=== PATIENT | male | born 2000 | race African-American/Black ===

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

== ENCOUNTER 2021-01-08 09:06 | Emergency (ER) | payer MEDICAID, OTHER ==
[~2021-01-08] VITALS: Ht 170.2 cm; Wt 65.0 kg
[2021-01-08 09:15] VITALS: BP 124/56
[2021-01-08] MEDS ORDERED: IBUPROFEN 600MG TABLET PO ONE (11:00)
[2021-01-08] MEDS ORDERED: NAPR-681 MT (12:02)
== END 2021-01-08 12:23 | disposition home or self-care (01) ==
LOC: ER 09:06
DX: M79.641 Pain in right hand (principal); M79.644 Pain in right finger(s); Z87.81 Personal history of (healed) traumatic fracture
CPT/HCPCS: 73130; 99283

== ENCOUNTER 2022-10-09 17:01 | Emergency (ER) | payer OTHER ==
[~2022-10-09] VITALS: Ht 175.3 cm; Wt 68.0 kg
[~2022-10-09 17:01] MED LIST: NAPR-681 MT
[2022-10-09 17:32] VITALS: TEMP 98.8; O2SAT 100
[2022-10-09] MEDS ORDERED: KETOROLAC 60MG/2ML VIAL IM STA (19:57)
[2022-10-09] MEDS ORDERED: BACITRACIN ZINC OINT UDPKT TOP ONE (20:00)
[2022-10-09] MEDS ORDERED: LIDOCAINE HCL/PF 1% 10 MG/ML 5ML VIAL INFIL ONE (20:00)
[2022-10-09 20:45] VITALS: BP 133/80; PULSE 95; RESP 18
[2022-10-09] MEDS ORDERED: IBUP-2029 PO (21:04)
[2022-10-09] MEDS ORDERED: CEPH500T MT (21:04)
[2022-10-09] MEDS ORDERED: SULF1TAB48 MT (21:04)
== END 2022-10-09 21:17 | disposition home or self-care (01) ==
LOC: ER 17:01
DX: N49.2 Inflammatory disorders of scrotum (principal); F12.10 Cannabis abuse, uncomplicated
CPT/HCPCS: 10060; 96372; 99283; J1885; J3490; Z7610 ×5

== ENCOUNTER 2023-05-20 14:39 | Emergency (ER) | payer MEDICAID, OTHER ==
[~2023-05-20] VITALS: Ht 172.7 cm; Wt 65.9 kg
[~2023-05-20 14:39] MED LIST changes: +CEPH500T MT; +IBUP-2029 PO; +SULF1TAB48 MT
[2023-05-20 14:55] VITALS: RESP 18; TEMP 98.8; O2SAT 100
[2023-05-20 15:49] LABS: BASOPHILS % 1.5 % (0.0-2.0); DIFFERENTIAL COMMENT 0; EOSINOPHILS % 0.4 % (0.0-5.0); HEMATOCRIT. 50.3 % (42.0-52.0); HEMOGLOBIN. 17.1 g/dL (14.0-18.0); LYMPHOCYTES % 18.3 % (20.0-50.0); MEAN CORPUSCULAR HEMOGLOBIN 34.3 pg (28.0-32.0); MEAN CORPUSCULAR HGB CONC 33.9 g/dL (31.0-37.0); MEAN CORPUSCULAR VOLUME 101.2 fL (80.0-94.0); MEAN PLATELET VOLUME 8.7 fl (7.4-10.4); MONOCYTES % 7.3 % (2.0-8.0); NEUTROPHILS % 72.5 % (40.0-76.0); PLATELET 175 x1000/uL (130-400); RED BLOOD CELL COUNT 4.96 mill/uL (4.7-6.1); RED CELL DISTRIBUTION WIDTH 13.1 % (11.6-14.6); WHITE BLOOD COUNT 6.1 x1000/uL (4.5-11.0)
[2023-05-20 16:03] LABS: ALANINE AMINOTRANSFERASE 16 IU/L (10-49); ALBUMIN 5.2 g/dL (3.2-4.8); ASPARTATE AMINOTRANSFERASE 27 IU/L (<34); BILIRUBIN TOTAL 0.7 mg/dL (0.1-1.0); CALCIUM 10.1 mg/dL (8.7-10.4); CARBON DIOXIDE 25 mEq/L (21-32); CHLORIDE 107 mEq/L (98-107); CREATININE 1.2 mg/dL (0.6-1.3); GLUCOSE 92 mg/dL (70-105); POTASSIUM 4.6 mEq/L (3.5-5.1); PROTEIN TOTAL 8.5 g/dL (6.0-8.3); SODIUM 139 mEq/L (136-145); UREA NITROGEN BLOOD 9 mg/dL (9-23)
[2023-05-20 16:07] LABS: TROPONIN I HIGH SENSITIVITY < 4 ng/L (3.0-53)
[2023-05-20 18:33] LABS: CLARITY URINE CLEAR (CLEAR); COLOR URINE YELLOW (YELLOW); GLUCOSE URINE NEGATIVE (NEGATIVE); KETONES URINE NEGATIVE (NEGATIVE); LEUKOCYTE ESTERASE URINE TRACE (NEGATIVE); NITRITE URINE NEGATIVE (NEGATIVE); OCCULT BLOOD URINE NEGATIVE (NEGATIVE); PH URINE 7.5 (4.5-8.0); PROTEIN URINE NEGATIVE (NEGATIVE); SPECIFIC GRAVITY URINE 1.022 (1.005-1.030)
[2023-05-20 19:13] LABS: BACTERIA URINE TRACE; RBC URINE NONE SEEN /hpf (0-2); SQUAMOUS EPITHELIAL CELL URINE RARE /lpf (RARE/1+); WBC URINE 0-2 /hpf (0-2)
[2023-05-20] MEDS ORDERED: IBUP-1523 MT (20:38)
[2023-05-20] MEDS ORDERED: TOPUD MT (20:38)
[2023-05-20 20:57] VITALS: BP 124/71; PULSE 87
== END 2023-05-20 21:03 | disposition home or self-care (01) ==
LOC: ER 14:46
DX: R07.89 Other chest pain (principal)
CPT/HCPCS: 36415; 71045; 80053; 81003; 84484; 85025; 93005; 99285